=== PATIENT | female | born 1985 | race Caucasian/White ===

== ENCOUNTER 2018-10-04 17:11 | Emergency (ER) | payer MEDICAID ==
[~2018-10-04] VITALS: Ht 152.4 cm; Wt 56.7 kg
[2018-10-04 17:31] VITALS: BP 107/77
== END 2018-10-04 18:12 | disposition home or self-care (01) ==
LOC: ER 17:14
DX: O26.891 Other specified pregnancy related conditions, first trimester (principal); T63.441A Toxic effect of venom of bees, accidental (unintentional), initial encounter; E03.9 Hypothyroidism, unspecified; Z3A.08 8 weeks gestation of pregnancy; Y92.89 Other specified places as the place of occurrence of the external cause

== ENCOUNTER 2019-04-02 08:32 | Emergency (ER) | payer MEDICAID ==
[~2019-04-02] VITALS: Ht 152.4 cm; Wt 66.7 kg
[2019-04-02 08:40] VITALS: BP 118/83
== END 2019-04-02 09:17 | disposition home or self-care (01) ==
LOC: ER 08:36
DX: O98.513 Other viral diseases complicating pregnancy, third trimester (principal); B34.9 Viral infection, unspecified; Z3A.34 34 weeks gestation of pregnancy